=== PATIENT | female | born 1980 | race Caucasian/White ===

== ENCOUNTER 2021-09-05 22:01 | Emergency (ER) | payer OTHER ==
[~2021-09-05 22:01] MED LIST: OMNICEF 300 MG300 MG PO
[2021-09-05 23:05] LABS: RED BLOOD COUNT 4.8 M/UL (4.00-5.10); WHITE BLOOD COUNT 11.6 K/UL (4.5-11.0)
[2021-09-05 23:27] LABS: BUN/CREATININE RATIO 16 (0-10)
== END 2021-09-06 13:52 ==
LOC: ER1 22:01
PROVIDERS: Nurse Practitioner; Physician Assistant
DX: R45.851 Suicidal ideations (principal); R07.9 Chest pain, unspecified; R51.9 Headache, unspecified; F41.9 Anxiety disorder, unspecified; Z88.5 Allergy status to narcotic agent; F17.210 Nicotine dependence, cigarettes, uncomplicated; Z20.822 Contact with and (suspected) exposure to COVID-19
CPT/HCPCS: 71045; 80053; 80307; 81001; 82550; 82553; 84484; 84703; 85025; 93005; 96374; 99285; J1885; Q9967; U0002

== ENCOUNTER → 2021-09-30 | Day surgery (SDC) | payer OTHER ==
[~2021-09-30] MED LIST changes: +CELEXA 20MG TAB20 MG PO; +DESYREL 50 MG T50 MG PO; +HYDROXYZINE HCL50 MG PO; +IBUPROFEN600 MG PO; +OLANZAPINE10 MG PO
== END | disposition home or self-care (01) ==
LOC: OR 06:56
DX: C81.91 Hodgkin lymphoma, unspecified, lymph nodes of head, face, and neck (principal); Z98.51 Tubal ligation status; F17.290 Nicotine dependence, other tobacco product, uncomplicated; Z88.5 Allergy status to narcotic agent; Z20.822 Contact with and (suspected) exposure to COVID-19
CPT/HCPCS: J0690; J1100; J2001; J2250; J2405; J2704; J3010; J7120

== ENCOUNTER 2021-11-15 16:14 | Emergency (ER) | payer OTHER ==
[2021-11-15] MEDS ORDERED: MEDROL DOSEPAK 24 MG PO (18:08)
[2021-11-15] MEDS ORDERED: KENALOG CREAM 080 GM EXT (18:08)
[2021-11-15] MEDS ORDERED: BENADRYL25 MG PO (18:08)
== END 2021-11-15 18:56 | disposition home or self-care (01) ==
LOC: ER1 16:14
DX: L23.7 Allergic contact dermatitis due to plants, except food (principal); F17.200 Nicotine dependence, unspecified, uncomplicated
CPT/HCPCS: 99282

== ENCOUNTER 2022-01-03 02:46 | Emergency (ER) | payer OTHER ==
[~2022-01-03 02:46] MED LIST changes: +BENADRYL25 MG PO; +KENALOG CREAM 080 GM EXT; +MEDROL DOSEPAK 24 MG PO
[2022-01-03 03:06] LABS: HEMOGLOBIN 10.6 gm/dl (12.3-15.3); RED BLOOD COUNT 4.61 M/UL (4.00-5.10); WHITE BLOOD COUNT 5.6 K/UL (4.5-11.0)
[2022-01-03 03:39] LABS: BUN/CREATININE RATIO 16 (0-10)
== END 2022-01-03 09:10 | disposition home or self-care (01) ==
LOC: ER1 02:46
PROVIDERS: Student in an Organized Health Care Education/Training Program
DX: R07.89 Other chest pain (principal); C81.90 Hodgkin lymphoma, unspecified, unspecified site; F17.210 Nicotine dependence, cigarettes, uncomplicated
CPT/HCPCS: 71045; 80053; 82550; 82553; 84484; 85025; 93005; 99285; Q9967